=== PATIENT | male | born 1965 | race African-American/Black ===

== ENCOUNTER 2019-11-15 15:17 | Emergency (ER) | payer OTHER, MEDICAID ==
[~2019-11-15] VITALS: Ht 190.5 cm; Wt 104.3 kg
[~2019-11-15 15:17] MED LIST: LACO200T PO; LEVE100012 PO; keppra
[2019-11-15 15:36] VITALS: BP 120/76
[2019-11-15] MEDS ORDERED: LIDOCAINE 1% HCL (LOCAL ANESTH.) INJ 20ML MDV IJ ONE (16:15)
[2019-11-15] MEDS ORDERED: cefTRIAXone SOD 1,000 MG VL IM ONE (16:15)
== END 2019-11-15 16:47 | disposition home or self-care (01) ==
LOC: ER 15:17
DX: S62.630A Displaced fracture of distal phalanx of right index finger, initial encounter for closed fracture (principal); S61.210A Laceration without foreign body of right index finger without damage to nail, initial encounter; W23.0XXA Caught, crushed, jammed, or pinched between moving objects, initial encounter; Y93.89 Activity, other specified; Y92.89 Other specified places as the place of occurrence of the external cause; Y99.8 Other external cause status
CPT/HCPCS: 12002; 29130; 73140; 96372; 99283; J0696; J2001